=== PATIENT | male | born 1995 | race Two or more races ===

== ENCOUNTER 2021-07-19 11:00 | Outpatient (CLI) | payer BC | END 2021-07-19 23:59 | disposition home or self-care (01) | LOC: LAB 11:00 | PROVIDERS: ATTEND Student in an Organized Health Care Education/Training Program | DX: Z01.812 Encounter for preprocedural laboratory examination (principal); Z20.822 Contact with and (suspected) exposure to COVID-19 | CPT/HCPCS: C9803; U0003 ==

== ENCOUNTER 2021-07-25 11:52 | Day surgery (SDC) | payer BC ==
--- NOTE | 2021-07-25 12:16 | NUR ---
RN NOTES PATIENT ARRIVED TO UNIT AT ROOM 313-2, AMBULATORY W/ STEADY GAIT. NOTED W/ SLING ON LUE. FOR SCHEDULED SURGERY W/ DR. BELLE. JENNIFER PER HX.
--- NOTE | 2021-07-25 12:44 | NUR ---
RN NOTES MRSA SWAB SPECIMEN OBTAINED AND PLACED IN THE REFRIGERATOR FOR PICKUP.
--- NOTE | 2021-07-25 13:02 | NUR ---
RN NOTES CONSENT FORMS SIGNED AND PLACED IN THE CHART.
--- NOTE | 2021-07-25 13:20 | NUR ---
RN NOTES IV LINE GAUGE #22 INSERTED ON RIGHT HAND, NO BLEEDING NOTED. BLOOD COLLECTED FOR TYPE AND SCREEN, PHLEB TECH AT BEDSIDE.
[2021-07-25] MEDS ORDERED: ANESTHESIA TRAY IN PYXIS 1 EA TRAY MC ONE (13:22)
[2021-07-25] MEDS ORDERED: POLYMYXIN B SULFATE 0 UNITS ONE (13:23)
[2021-07-25] MEDS ORDERED: BACITRACIN ZINC OINT (15 GM) 15 GM TUBE TP ONE (13:24)
[2021-07-25] MEDS ORDERED: LIDOCAINE 1% INJ 50 ML MDV IJ ONE (13:24)
[2021-07-25] MEDS ORDERED: VANCOMYCIN 1 GM VIAL ONE (13:24)
[2021-07-25] MEDS ORDERED: BUPIVACAINE 0.25% 75 MG/30 ML VIAL ONE (13:24)
[2021-07-25] MEDS ORDERED: SEVOFLURANE 250 ML BOTTLE IH ONE (13:38)
--- NOTE | 2021-07-25 13:43 | NUR ---
RN NOTES PATIENT PICKED UP FOR SURGERY VIA GURNEY, ACCOMPANIED BY 2 OR NURSES.
[2021-07-25] MEDS ORDERED: FENTANYL PF 100MCG/2ML AMPUL ONE (13:50)
[2021-07-25] MEDS ORDERED: HYDROMORPHONE INJ 2 MG/ML DISP.SYRIN ONE (13:50)
[2021-07-25] MEDS ORDERED: MIDAZOLAM HCL 2 MG/2ML VIAL ONE (13:50)
[2021-07-25] MEDS ORDERED: ROCURONIUM BROMIDE 50 MG/5 ML ONE (13:51)
[2021-07-25] MEDS ORDERED: BUPIVACAINE 0.5 % PF 150 MG/30 ML VIAL ONE (15:14)
[2021-07-25] MEDS ORDERED: HYDROMORPHONE 1 MG/1 ML DISP.SYRIN ONE (16:17)
--- NOTE | 2021-07-25 16:59 | NUR ---
RN NOTES PATIENT RETURNED FROM SURGERY VIA GURNEY, ACCOMPANIED BY 2 OR NURSES. 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 POST-OP ORDERS NOTED. DINNER ORDERED FOR PATIENT, CURRENTLY AWAKE AND VERBALLY RESPONSIVE.
--- NOTE | 2021-07-25 17:41 | NUR ---
RN NOTES PATIENT ABLE TO DRINK WATER AT THIS TIME. DINNER PLACED AT BEDSIDE. PER PATIENT, HE'D LIKE TO REST FOR A LITTLE BIT THEN HE'LL BE OKAY TO BE DISCHARGED.
--- NOTE | 2021-07-25 19:32 | NUR ---
RN NOTES DR. BELLE W/ STANDING ORDER FOR DISCHARGE TO HOME ONCE STABLE. DISCHARGE INSTRUCTION AND EDUCATION PROVIDED TO PATIENT; POST-OP FOLLOW-UP INFORMATION GIVEN. DISCHARGE FORM SIGNED BY PATIENT; BELONGINGS W/ PATIENT. NAME ARMBAND AND IV LINE REMOVED, NO BLEEDING NOTED. NO SKIN ISSUES NOTED. PATIENT IS AMBULATORY W/ STEADY GAIT AND AMBULATED TO THE LOBBY. PICKED UP BY FRIEND VIA PRIVATE CAR. CHARGE NURSE AND MD AWARE OF DISCHARGE.
== END 2021-07-25 18:00 | disposition home or self-care (01) ==
LOC: DS 11:52 → MED 11:56 → UNDOADMIN 11:56 → DS 18:00 → UNDODISIN 19:40
PROVIDERS: ATTEND Student in an Organized Health Care Education/Training Program
DX: S52.122A Displaced fracture of head of left radius, initial encounter for closed fracture (principal); X58.XXXA Exposure to other specified factors, initial encounter; Y93.89 Activity, other specified; Y92.89 Other specified places as the place of occurrence of the external cause; Y99.8 Other external cause status
CPT/HCPCS: 24665; 36415; 73070; 86850; 87081; A4565; A6402; C1713 ×2; J0690; J1100; J1170 ×2; J2250; J2405; J2704; J3010; J3490 ×3; J7030; G0378; J3370

== ENCOUNTER 2021-10-12 15:25 | Outpatient (CLI) | payer BC ==
[2021-10-13 05:07] LABS: RUBELLA ANTIBODIES, IGG 1.09 index (Immune >0.99)
[2021-10-13 06:07] LABS: *RUBEOLA AB (IGG) >300.0 AU/mL (Immune >16.4)
== END 2021-10-12 23:59 | disposition home or self-care (01) ==
LOC: LAB 15:25
PROVIDERS: ATTEND Internal Medicine
DX: Z02.1 Encounter for pre-employment examination (principal)
CPT/HCPCS: 36415; 86317; 86735; 86762; 86765; 86787